=== PATIENT | female | born 1980 | race Caucasian/White ===

== ENCOUNTER 2016-10-22 00:22 | Emergency (ER) | payer OTHER ==
[~2016-10-22] VITALS: Ht 167.6 cm; Wt 66.7 kg
[~2016-10-22 00:22] MED LIST: AMOXICILLIN500 M2 PO; AMOXICILLIN875 M1 PO; IBUPROFEN800 M1 PO; PERCOCET 5-3251 EACH PO; PERIDEX473 ML PO
--- NOTE | 2016-10-22 00:39 | ED THROAT/DENTAL COMPLAINT ---
History of Present Illness General Chief Complaint: Sore Throat, Dental Pain Stated Complaint: SEVERE TOOTH PAIN PER PT Source: patient, family Exam Limitations: no limitations Vital Signs & Intake/Output Vital Signs & Intake/Output Vital Signs Date Time Temp Pulse Resp B/P Pulse O2 O2 Flow FiO2 Ox Delivery Rate 10/22 0041 98.2 99 22 149/89 97 Room Air Allergies Coded Allergies: NO KNOWN ALLERGIES (12/25/15) Reconcile Medications Amoxicillin 875 MG TABLET 1 TAB PO BID DENTAL INFECTION Amoxicillin 500 MG CAPSULE 1 CAP PO TID DENTAL INFECTION Amoxicillin/Potassium Clav (Augmentin 875-125 Tablet) 875 MG-125 MG TABLET 1 TAB PO BID dental infection Chlorhexidine Gluconate (Peridex) 473 ML MOUTHWASH 5 ML PO TID DENTAL INFECTION SWISH AND SPIT 3X PER DAY Ibuprofen 800 MG TABLET 1 TAB PO TID PRN pain Ibuprofen 800 MG TABLET 1 TAB PO Q8H PRN pain Oxycodone HCl/Acetaminophen (Percocet 5-325 MG Tablet) 1 EACH TABLET 1 TAB PO Q4-6 PRN breakthrough pain Oxycodone HCl/Acetaminophen (Percocet 5-325 MG Tablet) 5 MG-325 MG TABLET 1 TAB PO 4XDP PRN PAIN TEN...[id number] Oxycodone HCl/Acetaminophen (Percocet 5-325 MG Tablet) 1 EACH TABLET 1 TAB PO Q6H PRN PAIN Oxycodone HCl/Acetaminophen (Percocet 5-325 MG Tablet) 1 EACH TABLET 1 TAB PO Q6H PRN PAIN Triage Nurses Notes Reviewed? yes Onset: Gradual Duration: day(s): Timing: recent history Injury Environment: home Severity: moderate Modifying Factors: Worsens With: other (postop pain). Associated Symptoms: ain in her gums in the upper and lower jaw HPI: 35-year-old woman status post dental extraction of her entire teeth in her upper and lower jaws 5 days ago, presents with pain and swelling in her jaws. She notes that she ran out of her Percocet. She states that she believes her gums point now be infected. She is able to eat and drink and speak without problem. She has no fever. She has no dyspnea. Past History Travel History Traveled to [place] past 21 day No Medical History Any Pertinent Medical History? see below for history Neurological: NONE EENT: dental caries Cardiovascular: NONE Respiratory: NONE Gastrointestinal: NONE Hepatic: NONE Renal: NONE Musculoskeletal: NONE Psychiatric: anxiety Endocrine: NONE Blood Disorders: NONE Cancer(s): NONE OTC CLERK/Reproductive: NONE Surgical History Surgical History: carpal tunnel Psychosocial History What is your primary language [place] Family History Hx Contributory? No Review of Systems Review of Systems Constitutional: Reports: no symptoms. EENTM: Reports: no symptoms. Respiratory: Reports: no symptoms. Cardiovascular: Reports: no symptoms. GI: Reports: no symptoms. Genitourinary: Reports: no symptoms. Musculoskeletal: Reports: no symptoms. Skin: Reports: no symptoms. Neurological/Psychological: Reports: no symptoms. Hematologic/Endocrine: Reports: no symptoms. Immunologic/Allergic: Reports: no symptoms. All Other Systems: Reviewed and Negative Physical Exam Physical Exam General Appearance: well developed/nourished, mild distress Head: atraumatic, normal appearance Eyes: Bilateral: normal appearance. Ears: Bilateral: canal normal. Nose: normal inspection Mouth/Throat: all teeth removed from her upper or lower extremities. There is diffuse erythema on the gums with tenderness to palpation. There is no tova abscess that I could appreciate. Neck: normal inspection Cardiovascular/Respiratory: normal breath sounds Core Measures ACS in differential dx? No Severe Sepsis Present: No Septic Shock Present: No Progress Differential Diagnosis: dental infection versus postoperative pain versus other. Plan of Care: Gave patient prescription for Percocet and Augmentin. I advocated that she fell with her dental surgeon tomorrow. Departure Departure Disposition: HOME OR SELF CARE Condition: Stable Clinical Impression Primary Impression: Postoperative pain Secondary Impressions: Dental infection Referrals: PATIENT HAS NO PRIMARY CARE DR (PCP/Family) Departure Forms: Customer Survey General Discharge Information Prescriptions: Current Visit Scripts Oxycodone HCl/Acetaminophen (Percocet 5-325 MG Tablet) 1 TAB PO 4XDP PRN PAIN #10 TAB TEN...[id number] Amoxicillin/Potassium Clav (Augmentin 875-125 Tablet) 1 TAB PO BID #20 TAB Ibuprofen 1 TAB PO TID PRN pain #60 TAB
[2016-10-22] MEDS ORDERED: IBUPROFEN800 M1 PO (00:40)
[2016-10-22] MEDS ORDERED: PERCOCET 5-3251 EACH PO (00:40)
[2016-10-22] MEDS ORDERED: AUGMENTIN 875-1 EACH PO (00:40)
[2016-10-22 00:41] VITALS: BP 149/89
== END 2016-10-22 00:50 ==
LOC: ERH 00:22
DX: K04.7 Periapical abscess without sinus (principal); G89.18 Other acute postprocedural pain
CPT/HCPCS: J3490